=== PATIENT | female | born 1950 | race Caucasian/White ===

== ENCOUNTER → 2018-01-15 | Outpatient (CLI) | payer BC ==
[~2018-01-15] MED LIST: ALBU90OI6 INH; CYCL10 PO; ESZO2 PO; EZET10-40 PO; FLUO20 PO; LORA1 PO; NORCO 7.5/325 PO; PROM25 PO; TRAZ100 PO; VALS80 PO
[2018-01-19 14:49] LABS: Stool Occult Bld Immuno 1 Negative (NEGATIVE); Stool Occult Bld Immuno 2 Negative (NEGATIVE)
== END | disposition home or self-care (01) ==
LOC: LAB 18:14 → LAB SHORT 18:14
PROVIDERS: Internal Medicine Gastroenterology
DX: Z12.11 Encounter for screening for malignant neoplasm of colon (principal); R74.8 Abnormal levels of other serum enzymes
CPT/HCPCS: 82274

== ENCOUNTER → 2018-02-10 | Outpatient (CLI) | payer BC | END | disposition home or self-care (01) | LOC: LAB SHORT 09:55 → LAB EV 09:55 | DX: Z51.81 Encounter for therapeutic drug level monitoring (principal); Z79.899 Other long term (current) drug therapy | CPT/HCPCS: G0480 ==

== ENCOUNTER 2018-12-06 07:23 | Day surgery (SDC) | payer BC ==
[~2018-12-06] VITALS: Ht 157.5 cm; Wt 70.7 kg
[~2018-12-06 07:23] MED LIST changes: +ACTIVATED CHARCOAL; +COLCRYS0.6 MG PO; +Crestor40 MG PO; +EZET10 PO; +Fibercon625 MG PO; +IRBESARTAN-HCT1 EAC1 PO; +LUNESTA PO; +METPHE5 PO; +NICORETTE2 M1 BC; +VENL150ER PO; +VITAMIN D PO
[2018-12-06] MEDS ORDERED: TRAM50 (07:42)
== END 2018-12-06 09:10 | disposition home or self-care (01) ==
LOC: ORSCSDS 07:23
PROVIDERS: Ophthalmology
PROC: 08RJ3JZ Replacement of Right Lens with Synthetic Substitute, Percutaneous Approach (ICD-10-PCS; principal; 2018-12-06 09:00)
DX: H25.11 Age-related nuclear cataract, right eye (principal); I10 Essential (primary) hypertension; K21.9 Gastro-esophageal reflux disease without esophagitis; E11.9 Type 2 diabetes mellitus without complications; Z87.891 Personal history of nicotine dependence; Z79.899 Other long term (current) drug therapy
CPT/HCPCS: J2001; J2250; J3010; J3301; V2632

== ENCOUNTER 2018-12-27 06:26 | Day surgery (SDC) | payer BC ==
[~2018-12-27] VITALS: Ht 157.5 cm; Wt 72.0 kg
[~2018-12-27 06:26] MED LIST changes: +TRAM50
== END 2018-12-27 08:18 | disposition home or self-care (01) ==
LOC: ORSCSDS 06:26
PROVIDERS: Ophthalmology
PROC: 08RK3JZ Replacement of Left Lens with Synthetic Substitute, Percutaneous Approach (ICD-10-PCS; principal; 2018-12-27 07:30)
DX: H25.12 Age-related nuclear cataract, left eye (principal); I10 Essential (primary) hypertension; J44.9 Chronic obstructive pulmonary disease, unspecified; Z87.891 Personal history of nicotine dependence; Z79.899 Other long term (current) drug therapy
CPT/HCPCS: J2001; J2250; J3010; J3301; J7120; V2632

== ENCOUNTER 2020-10-30 09:53 | Day surgery (SDC) | payer BC ==
[~2020-10-30] VITALS: Ht 157.5 cm; Wt 63.9 kg
[~2020-10-30 09:53] MED LIST changes: +ALBU90OI INH; +Abilify2 MG PO; +Crestor20 MG PO; +IRBE150 PO
[2020-10-30] MEDS ORDERED: HYDROCODONE-AC1 EA11 PO (10:51)
--- NOTE | 2020-10-30 11:51 | NUR ---
10/30/20 [address] FAULKNER HERE SPEAKING TO PT. ABOUT HER NERVE BLOCK. NERVE BLOCK PERFORMED. SATS 97-99%. PT. TOLERATED PROCEDURE.
--- NOTE | 2020-10-30 12:27 | NUR ---
10/30/20 1227 Eunice Kendall POSITION VERIFIED BY SURGEON.
--- NOTE | 2020-10-30 14:03 | NUR ---
10/30/20 1403 Digna Durand PT DISCHARGED WITH ULTRASLING AND POLAR PACK IN PLACE. DISCHARGE INSTRUCTIONS REVIEWED WITH PT. PT VERBALIZES UNDERSTANDING AND DENIES QUESTIONS. IV REMOVED. PT DISCHARGED WITH INCENTIVE SPIROMETER, PT DEMONSTRATED USE AND VERBAZLIZES UNDERSTANDING.
== END 2020-10-30 14:16 | disposition home or self-care (01) ==
LOC: ORSCSDS 09:53
PROVIDERS: Orthopaedic Surgery
PROC: 0LS44ZZ Reposition Left Upper Arm Tendon, Percutaneous Endoscopic Approach (ICD-10-PCS; principal; 2020-10-30 11:15)
PROC: 0LQ24ZZ Repair Left Shoulder Tendon, Percutaneous Endoscopic Approach (ICD-10-PCS; principal; 2020-10-30 11:15)
PROC: 0RNK4ZZ Release Left Shoulder Joint, Percutaneous Endoscopic Approach (ICD-10-PCS; principal; 2020-10-30 11:15)
DX: M75.112 Incomplete rotator cuff tear or rupture of left shoulder, not specified as traumatic (principal); M75.22 Bicipital tendinitis, left shoulder; M75.42 Impingement syndrome of left shoulder; I10 Essential (primary) hypertension; E78.5 Hyperlipidemia, unspecified; J44.9 Chronic obstructive pulmonary disease, unspecified; R73.09 Other abnormal glucose; Z87.891 Personal history of nicotine dependence; Z79.899 Other long term (current) drug therapy
CPT/HCPCS: 82947; C1713; J0171; J1100; J2250; J2370; J2405; J2704; J3010; J7120

== ENCOUNTER → 2021-10-20 | Outpatient (CLI) | payer OTHER ==
[~2021-10-20] MED LIST changes: +HYDROCODONE-AC1 EA11 PO
[2021-10-20 19:11] LABS: Adenovirus F 40/41 Not Detected (NOT DETECT); Astrovirus Not Detected (NOT DETECT); Campylobacter Sp Not Detected (NOT DETECT); Cryptosporidium Not Detected (NOT DETECT); Cyclospora Cayetanensis Not Detected (NOT DETECT); E. Coli O157 Not Detected (NOT DETECT); Entamoeba Histolytica Not Detected (NOT DETECT); Enteroaggregative E. coli-EAEC Not Detected (NOT DETECT); Enteropathogenic E. coli-EPEC Not Detected (NOT DETECT); Enterotoxigenic E. coli-ETEC Not Detected (NOT DETECT); Giardia Lamblia Not Detected (NOT DETECT); Norovirus GI/GII Not Detected (NOT DETECT); Plesiomonas Shigelloides Not Detected (NOT DETECT); Rotavirus A Not Detected (NOT DETECT); Salmonella Sp Not Detected (NOT DETECT); Sapovirus Not Detected (NOT DETECT); Shiga Toxin-prod E. coli-STEC Not Detected (NOT DETECT); Shigella/Enteroin E. coli-EIEC Not Detected (NOT DETECT); Vibrio Cholerae Not Detected (NOT DETECT); Vibrio Sp Not Detected (NOT DETECT); Yersinia Enterocolitica Not Detected (NOT DETECT)
== END | disposition home or self-care (01) ==
LOC: LAB 09:30 → LAB SHORT 09:30
PROVIDERS: Family Medicine
DX: K52.9 Noninfective gastroenteritis and colitis, unspecified (principal)
CPT/HCPCS: 0097U

== ENCOUNTER → 2023-02-01 | Outpatient (CLI) | payer MEDICARE, OTHER ==
[2023-02-03 10:07] LABS: Stool Occult Bld Immuno 1 Negative (NEGATIVE); Stool Occult Bld Immuno 2 Negative (NEGATIVE)
== END | disposition home or self-care (01) ==
LOC: LAB SHORT 07:30 → LAB 07:30
PROVIDERS: Internal Medicine Gastroenterology
DX: Z09 Encounter for follow-up examination after completed treatment for conditions other than malignant neoplasm (principal); Z86.010 Personal history of colon polyps
CPT/HCPCS: 82274

== ENCOUNTER → 2025-06-18 | Outpatient (CLI) | payer MEDICARE, OTHER ==
[2025-06-18 20:54] LABS: Campylobacter Sp Not Detected (NOT DETECT)
[2025-06-18 20:55] LABS: E. Coli O157 Not Detected (NOT DETECT); Enteroaggregative E. coli-EAEC Not Detected (NOT DETECT); Enteropathogenic E. coli-EPEC Not Detected (NOT DETECT); Enterotoxigenic E. coli-ETEC Not Detected (NOT DETECT); Salmonella Sp Not Detected (NOT DETECT); Shiga Toxin-prod E. coli-STEC Not Detected (NOT DETECT); Shigella/Enteroin E. coli-EIEC Not Detected (NOT DETECT); Vibrio Sp Not Detected (NOT DETECT)
[2025-06-21 14:13] LABS: CALPROTECTIN,FECAL 10 ug/g (<=49)
== END | disposition home or self-care (01) ==
LOC: LAB SHORT 13:30 → LAB 13:30
PROVIDERS: Nurse Practitioner Family
DX: R19.4 Change in bowel habit (principal)
CPT/HCPCS: 83993; 87507

== ENCOUNTER 2025-07-10 10:09 | Day surgery (SDC) | payer MEDICARE, OTHER ==
[~2025-07-10] VITALS: Ht 157.5 cm; Wt 62.7 kg
[2025-07-10] MEDS ORDERED: Ritalin5 MG (10:36)
[2025-07-10] MEDS ORDERED: PREGABALIN50 MG (10:36)
[2025-07-10] MEDS ORDERED: METOPROLOL SUCC25 MG (10:36)
[2025-07-10] MEDS ORDERED: ESZOPICLONE2 MG (10:36)
[2025-07-10] MEDS ORDERED: NITROGLYCERIN0.4 M3 (10:38)
[2025-07-10] MEDS ORDERED: Vitamin D1000 UNI1 (10:39)
[2025-07-10] MEDS ORDERED: CENTRUM SILVER1 EAC2 (10:40)
[2025-07-10] MEDS ORDERED: COQMAX UBIQUIN100 MG (10:40)
[2025-07-10] MEDS ORDERED: Aspir 8181 MG (10:40)
[2025-07-10 12:24] VITALS: BP 133/68
== END 2025-07-10 12:32 | disposition home or self-care (01) ==
LOC: ORSCSDS 10:09
PROVIDERS: Specialist
PROC: 0DBE8ZX Excision of Large Intestine, Via Natural or Artificial Opening Endoscopic, Diagnostic (ICD-10-PCS; principal; 2025-07-10 11:30)
DX: R19.4 Change in bowel habit (principal); K57.30 Diverticulosis of large intestine without perforation or abscess without bleeding; K64.8 Other hemorrhoids; R19.5 Other fecal abnormalities; Z86.0101 Personal history of adenomatous and serrated colon polyps; Z83.719 Family history of colon polyps, unspecified; J44.9 Chronic obstructive pulmonary disease, unspecified; G47.33 Obstructive sleep apnea (adult) (pediatric); Z79.82 Long term (current) use of aspirin; Z79.899 Other long term (current) drug therapy; Z87.891 Personal history of nicotine dependence
CPT/HCPCS: 88305; J2704; J7120